=== PATIENT | female | born 1975 | race Two or more races ===

== ENCOUNTER 2022-01-25 21:11 | Emergency (ER) | payer OTHER ==
[~2022-01-25] VITALS: Ht 160 cm; Wt 54.5 kg
[2022-01-26] MEDS: IBUPROFEN 600 MG TABLET PO ONE ×2 (00:41→00:44)
[2022-01-26] MEDS ORDERED: IBUP-2070 PO (02:09)
[2022-01-26 03:55] VITALS: BP 106/71
== END 2022-01-26 04:20 | disposition home or self-care (01) ==
LOC: EMS 21:14
DX: S93.602A Unspecified sprain of left foot, initial encounter (principal); X50.1XXA Overexertion from prolonged static or awkward postures, initial encounter; Y93.89 Activity, other specified; Y92.89 Other specified places as the place of occurrence of the external cause; Y99.8 Other external cause status
CPT/HCPCS: 99283